=== PATIENT | female | born 1960 | race Caucasian/White ===

== ENCOUNTER 2018-07-29 15:30 | Emergency (ER) | payer MEDICAID ==
[~2018-07-29] VITALS: Ht 165.1 cm; Wt 76.7 kg
[~2018-07-29 15:30] MED LIST: BUPR75TA4 OR
[2018-07-29 15:40] VITALS: BP 130/76
[2018-07-29] MEDS ORDERED: KETOROLAC TROMETH 60MG/2ML VIAL IM ONE (16:15)
== END 2018-07-29 17:03 | disposition home or self-care (01) ==
LOC: ER 15:34
DX: M51.35 Other intervertebral disc degeneration, thoracolumbar region (principal); M50.30 Other cervical disc degeneration, unspecified cervical region; M54.16 Radiculopathy, lumbar region; M54.12 Radiculopathy, cervical region; G43.909 Migraine, unspecified, not intractable, without status migrainosus
CPT/HCPCS: 72040; 72100; 93005; 96372; 99284; J1885

== ENCOUNTER 2018-08-02 17:17 | Emergency (ER) | payer MEDICAID ==
[~2018-08-02] VITALS: Ht 165.1 cm; Wt 76.7 kg
[2018-08-02 18:21] VITALS: BP 123/76
[2018-08-02] MEDS ORDERED: DEXAMETHASONE SOD PHOS 10MG/1ML VIAL INJ IM ONE (18:45)
[2018-08-02] MEDS ORDERED: KETOROLAC TROMETH 60MG/2ML VIAL IM ONE (18:45)
== END 2018-08-02 19:03 | disposition home or self-care (01) ==
LOC: ER 17:30
DX: S16.1XXA Strain of muscle, fascia and tendon at neck level, initial encounter (principal); M19.90 Unspecified osteoarthritis, unspecified site; X58.XXXA Exposure to other specified factors, initial encounter; Y93.89 Activity, other specified; Y92.89 Other specified places as the place of occurrence of the external cause; Y99.8 Other external cause status
CPT/HCPCS: 96372; 99284; J1100; J1885

== ENCOUNTER 2019-05-11 17:25 | Emergency (ER) | payer MEDICAID ==
[~2019-05-11] VITALS: Ht 160 cm; Wt 90.7 kg
[2019-05-11 18:37] LABS: Basophils # (auto) 0 uL; Basophils % (auto) 0.7 % (0.0-2.0); Eosinophils # (auto) 0.1 uL; Eosinophils % (auto) 3.2 % (0.0-7.0); Hematocrit 41.3 % (36.0-46.0); Hemoglobin 14.1 g/dL (12.2-16.2); Lymphocytes # (auto) 1.3 uL; Lymphocytes % (auto) 43.4 % (10.0-50.0); Mean Corpuscular Hemoglobin 31.7 pg (28.0-32.0); Mean Corpuscular Hgb Conc. 34.1 g/dL (32.0-36.0); Mean Corpuscular Volume 93.1 fL (80.0-100.0); Monocytes # (auto) 0.3 uL; Monocytes % (auto) 10.8 % (0.0-12.0); Neutrophils # (auto) 1.3 uL; Neutrophils % (auto) 41.9 % (37.0-80.0); Nucleated Red Blood Cells % 0.1 %; Platelet Count (auto) 190 10^3/uL (140-450); Red Blood Cells 4.43 10^6/uL (4.0-5.20); Red Cell Distribution Width 13.2 % (11.8-14.3); White Blood Cell 3.1 10^3/uL (4.4-10.8)
[2019-05-11 18:53] LABS: Albumin 3.5 g/dL (3.4-5.0); Anion Gap 6 (5-15); Blood Urea Nitrogen 17 mg/dL (7-18); Calcium 8.7 mg/dL (8.5-10.1); Carbon Dioxide 30 mmol/L (21-32); Chloride 107 mmol/L (98-107); GFR African American 58 mL/min; GFR Non-African American 48 mL/min; Glucose 104 mg/dL (74-106); Potassium 4.1 mmol/L (3.5-5.1); Salicylate < 1.7 mg/dL (2.8-20.0); Sodium 143 mmol/L (136-145)
[2019-05-11 18:55] LABS: Amphetamine Screen, Urine NEGATIVE (NEGATIVE); Barbiturate Scree,Urine NEGATIVE (NEGATIVE); Benzodiazephine Screen, Urine NEGATIVE (NEGATIVE); Cannabinoid Screen, Urine NEGATIVE (NEGATIVE); Cocaine Screen, Urine NEGATIVE (NEGATIVE); Phencyclidine Screen, Urine NEGATIVE (NEGATIVE)
[2019-05-11 18:55] LABS: Acetaminophen < 2.0 ug/mL (10-30)
[2019-05-11 18:57] LABS: Alanine Aminotransferase 16 U/L (13-56); Alkaline Phosphatase 80 U/L (45-117); Aspartate Aminotransferase 17 U/L (15-37); Bilirubin, Total 0.2 mg/dL (0.2-1.0); Blood Alcohol < 3.0 mg/dL (0-5); Total Protein 7.3 g/dL (6.4-8.2)
[2019-05-11 19:01] LABS: Urine Bacteria FEW /hpf (None Seen); Urine Blood TRACE /uL (Negative); Urine Mucus FEW (None Seen); Urine Specific Gravity 1.035 (1.001-1.035); Urine WBC 4 /hpf (0 - 5)
[2019-05-11 19:04] LABS: Alcohol, Urine < 3.0 mg/dL (0-5); Opiate Scree,Urine POSITIVE (NEGATIVE)
[2019-05-12] MEDS ORDERED: traZODone HCL 50 MG TAB PO ONE (02:17)
[2019-05-12] MEDS ORDERED: QUEtiapine FUMARATE 100 MG TAB PO ONE (02:17)
[2019-05-12] MEDS ORDERED: DULoxetine HCL 30 MG CAP PO ONE ×2 (02:18→02:32)
[2019-05-12] MEDS: HYDROcodone-ACET 5/325MG TAB PO PRN ×2 (09:07→21:02)
[2019-05-12] MEDS: DULoxetine HCL 30 MG CAP PO SCH (22:30)
[2019-05-12] MEDS: traZODone HCL 50 MG TAB PO SCH (22:30)
[2019-05-12] MEDS: QUEtiapine FUMARATE 100 MG TAB PO SCH (22:30)
[2019-05-13] MEDS: HYDROcodone-ACET 5/325MG TAB PO PRN ×2 (07:22→22:39)
[2019-05-13] MEDS: traZODone HCL 50 MG TAB PO SCH (22:00)
[2019-05-13] MEDS: DULoxetine HCL 30 MG CAP PO SCH (22:00)
[2019-05-13] MEDS: QUEtiapine FUMARATE 100 MG TAB PO SCH (22:00)
[2019-05-14] MEDS: HYDROcodone-ACET 5/325MG TAB PO PRN ×2 (08:23→14:17)
[2019-05-14 20:40] VITALS: BP 118/96
[2019-05-14] MEDS: QUEtiapine FUMARATE 100 MG TAB PO SCH (21:35)
[2019-05-14] MEDS: traZODone HCL 50 MG TAB PO SCH (21:35)
[2019-05-14] MEDS: DULoxetine HCL 30 MG CAP PO SCH (21:35)
[2019-05-15] MEDS ORDERED: HYDROcodone-ACET 5/325MG TAB ONE (03:04)
[2019-05-15] MEDS: HYDROcodone-ACET 5/325MG TAB PO PRN (03:07)
== END 2019-05-15 12:04 | disposition home or self-care (01) ==
LOC: ER 17:30
DX: F32.9 Major depressive disorder, single episode, unspecified (principal); R45.851 Suicidal ideations; F41.9 Anxiety disorder, unspecified
CPT/HCPCS: 36415; 80053; 80307; 80320; 80329; 81001; 85025